=== PATIENT | male | born 1950 | race Caucasian/White ===

== ENCOUNTER 2019-07-16 19:36 | Emergency (ER) | payer BC ==
[2019-07-16] MEDS ORDERED: Bacitracin Oint 1 GM U/D Packet TOP ONE (19:51)
[2019-07-16 20:04] VITALS: BP 148/81; PULSE 57
[2019-07-16] MEDS ORDERED: Triamcinolone Acetonide 40 MG/ML 1 ML MDV INJECT ONE (20:14)
--- NOTE | 2019-07-16 20:43 | EDM.PDOC ---
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: Dressing(s) - Related Data Allergies Allergy/AdvReac Type Severity Reaction Status Date / Time No Known Allergies Allergy Verified 07/16/19 19:52 Home Meds: Home Meds Aspirin 325 mg PO DAILY 03/12/14 [History] Lactobacillus Acidophilus [Probiotic] 1 each PO DAILY 03/12/14 [History] Losartan [Cozaar] 100 mg PO DAILY 03/12/14 [History] Simvastatin [Zocor] 80 mg PO BEDTIME 03/12/14 [History] amLODIPine [Norvasc] 10 mg PO DAILY 03/12/14 [History] hydroCHLOROthiazide [Hydrochlorothiazide] 12.5 mg PO DAILY 03/12/14 [History] Zolpidem [Ambien] 10 mg PO BEDTIME PRN #0 03/17/14 [Rx] oxyCODONE 5 mg PO Q4HR PRN #0 03/17/14 [Rx] Past Medical History Cardiovascular History: Reports: High Cholesterol, Hypertension, Other (See Below) Other Cardiovascular History: rhumatic fever Respiratory History: Reports: Sleep Apnea Gastrointestinal History: Reports: Diverticulosis, GERD Neurological History: Reports: Other (See Below) Other Neuro History: lumbar spine; neck surgery Psychiatric History: Reports: Anxiety Oncologic (Cancer) History: Reports: Basal Cell Carcinoma - Infectious Disease History Infectious Disease History: Reports: Chicken Pox, Rheumatic Fever - Past Surgical History HEENT Surgical History: Reports: LASIK, Other (See Below) GI Surgical History: Reports: Colon, Hernia Repair/Other, Other (See Below) Neurological Surgical History: Reports: Lumbar Spine Social & Family History - Tobacco Use Smoking Status *Q: Never Smoker ED ROS GENERAL - Review of Systems Review Of Systems: See Below Constitutional: Reports: No Symptoms Musculoskeletal: Reports: Joint Pain (Right thumb) Skin: Reports: Wound ED EXAM, SKIN/RASH Exam: See Below Text/Narrative:: Examination of the left hand he does have a 2 cm laceration across the middle phalangeal on the dorsal surface left digit #4, full range of motion of all digits radial pulses +2 examination the right hand he does have a catching joint at the MCP digit #1 consistent with trigger finger Exam Limited By: No Limitations General Appearance: Alert, WD/WN, No Apparent Distress ED SKIN PROCEDURES - Laceration/Wound Repair Left Digit - 3rd (Middle) Appearance: Subcutaneous, Linear Distal NVT: Neuro & Vascular Intact, No Tendon Injury Anesthetic Type: Digital Local Anesthesia - Lidocaine (Xylocaine): 1% Plain Local Anesthetic Volume: 2cc Skin Prep: Chlorhexidine (Hibiciens), Saline Saline Irrigation (cc's): 30 Exploration/Debridement/Repair: Wound Explored, In a Bloodless Field, Explored to Base Suture Size: 4-0 # of Sutures: 5 Suture Type: Prolene, Interrupted Sterile Dressing Applied: Nurse Tetanus Status Addressed: Yes (2019) - Additional/Other Procedure(s) Other (Free Text) Procedure(s): Preoperative diagnosis trigger finger digit #1 right hand Postoperative diagnosis same Surgeon Abdullahi OfficerMD Verbal consent was obtained prior to procedure risks and benefits were discussed patient is in agreement and wishes to proceed. Anesthesia ethylene chloride spray Estimated blood loss none Specimens none Summary procedure: Timeout was performed prior to initiation procedure identified correct site, correct patient and correct procedure. After palpating the most tender points on the palmar surface of the digit #1 this also appreciated the largest clinic the area was cleaned with Hibiclens followed by ethylene chloride spray for local anesthesia combination of 1 mL of Kenalog 40 mg for mill and 1/2 mL of 1% lidocaine was injected into the area needle withdrawn Complications none apparent Course - Vital Signs Last Recorded V/S: Last Vital Signs Temp 97.6 F 07/16/19 20:08 Pulse 57 L 07/16/19 20:08 Resp 16 07/16/19 20:08 BP 148/81 H 07/16/19 20:08 Pulse Ox 98 07/16/19 20:08 - Orders/Labs/Meds Meds: Medications Discontinued Medications Generic Name Dose Route Start Last Admin Trade Name Freq PRN Reason Stop Dose Admin Bacitracin 1 dose 07/16/19 19:51 07/16/19 20:01 Bacitracin Oint 1 Gm TOP 07/16/19 19:52 1 dose ONETIME ONE Administration Lidocaine HCl 5 ml 07/16/19 19:51 07/16/19 20:01 Xylocaine-Mpf 1% INJECT 07/16/19 19:52 5 ml ONETIME ONE Administration Triamcinolone Acetonide 40 mg 07/16/19 20:14 07/16/19 20:27 Kenalog-40 INJECT 07/16/19 20:15 40 mg ASDIRECTED ONE Administration Departure - Departure Time of Disposition: 20:43 Disposition: Home, Self-Care 01 Condition: Good Clinical Impression: Trigger finger of right thumb Laceration of left middle finger Qualifiers: Encounter type: initial encounter Damage to nail status: without damage Foreign body presence: without foreign body Qualified Code(s): S61.213A - Laceration without foreign body of left middle finger without damage to nail, initial encounter - Discharge Information Referrals: Nate Tyler MD [Primary Care Provider] - Additional Instructions: Suture removal in 10 days, follow wound care instruction sheet return to emergency department or follow-up with primary care - Assessment/Plan Plan: Assessment Acuity = acute Site and laterality = laceration digit #4 left hand, trigger finger digit #1 right hand Etiology = secondary to trauma, unknown trigger finger etiology Manifestations = none Location of injury = Home Lab values = none Plan Follow wound care instruction sheet, suture removal in 10 days This note was dictated using Swype recognition software please call with any questions on syntax or grammar.
== END 2019-07-16 20:54 | disposition home or self-care (01) ==
LOC: JP.ED 19:36
DX: S61.213A Laceration without foreign body of left middle finger without damage to nail, initial encounter (principal); M65.311 Trigger thumb, right thumb; I10 Essential (primary) hypertension; E87.5 Hyperkalemia; F41.9 Anxiety disorder, unspecified; Z79.82 Long term (current) use of aspirin; Z79.899 Other long term (current) drug therapy; W22.8XXA Striking against or struck by other objects, initial encounter
CPT/HCPCS: 12001; 20552; 99282; J2001; J3301

== ENCOUNTER 2021-03-01 05:51 | Day surgery (SDC) | payer BC ==
[~2021-03-01 05:51] MED LIST: Nozin Nasal Sanitizer NASBOTH ONE
[2021-03-01] MEDS ORDERED: Lactated Ringers 1,000 ML IV SCH (06:15)
[2021-03-01] MEDS ORDERED: Bupivacaine 0.5% 30 ML SDV ONE ×2 (06:43→07:23)
[2021-03-01] MEDS ORDERED: ceFAZolin 1 GM in Premix Bag 1 BAG IV ONE (07:15)
[2021-03-01] MEDS ORDERED: Rocuronium 50 MG/5 ML Vial ONE (07:16)
[2021-03-01] MEDS ORDERED: Neostigmine Methylsulfate 1 MG/ML 5 ML Syringe ONE (07:16)
[2021-03-01] MEDS ORDERED: Ondansetron 4 MG/2 ML SDV ONE (07:16)
[2021-03-01] MEDS ORDERED: Propofol 200 MG/20 ML SDV ONE (07:16)
[2021-03-01] MEDS ORDERED: Dexamethasone 4 MG/ML SDV ONE (07:16)
[2021-03-01] MEDS ORDERED: Midazolam 1 MG/ML 2 ML SDV ONE (07:16)
[2021-03-01] MEDS ORDERED: Glycopyrrolate 0.2 MG/ML 5 ML MDV ONE (07:16)
[2021-03-01] MEDS ORDERED: fentaNYL 250 MCG/5 ML SDV ONE (07:16)
[2021-03-01] MEDS ORDERED: Succinylcholine 200 MG/10 ML MDV ONE (08:00)
[2021-03-01] MEDS ORDERED: Lactated Ringers 1,000 ML ONE (09:34)
[2021-03-01] MEDS ORDERED: Morphine 2 MG/ML SYRINGE IVPUSH ONE (11:12)
[2021-03-01] MEDS ORDERED: Acetaminophen/oxyCODONE 325-5 MG Tab PO PRN (11:40)
[2021-03-01 12:50] VITALS: BP 105/68; PULSE 84
--- NOTE | 2021-03-01 13:30 | PCM.EKG ---
#1 Interpretation EKG Date: 03/01/21 Time: 07:09 Rhythm: NSR Rate (Beats/Min): 60 [place]: Normal P-Wave: Present QRS: Normal ST-T: Normal QT: Normal TX/PQ Interval: 1st degree AV block Comparison: No Change
--- NOTE | 2021-03-13 16:17 | OR ---
DATE OF PROCEDURE: 03/01/2021 SURGEON: Alvaro Sheriff MD PREOPERATIVE DIAGNOSES: 1. Left rotator cuff tear. 2. Impingement, left shoulder. POSTOPERATIVE DIAGNOSES: 1. Left rotator cuff tear. 2. Impingement, left shoulder. PROCEDURE PERFORMED: Arthroscopy of left shoulder with subacromial decompression and arthroscopic rotator cuff repair. Risks, benefits, and potential complications of the procedure were discussed. INDICATIONS: The patient has had progressive pain in the left shoulder for the past several months. He has failed conservative treatment, and MRI is consistent with a full-thickness tear of the rotator cuff. DESCRIPTION OF PROCEDURE: After adequate anesthesia was obtained, the patient was placed in the lateral decubitus position and secured with a lai bag positioner. The left shoulder and arm were prepped and draped in a sterile fashion and 10 pounds of traction was placed through the traction unit. A standard posterior portal was established, and the glenohumeral joint was inspected. This revealed some minimal degenerative change in the glenohumeral joint. Biceps tendon was intact. Subscapularis was intact. The undersurface of the rotator cuff showed a combination of partial and full-thickness tears. The scope was removed from the joint and placed in the subacromial space. Moderate inflamed bursa was present. This was cleared for visualization using combination of a shaver and radiofrequency ablation. Impingement was noted of the anterolateral acromion against the cuff. Soft tissues were cleared from the anterolateral edge, and a large hook was present. This was removed with a bur, bevelling the acromion posteriorly and medially. Further evaluation of the rotator cuff revealed a laminated tear with a flap on the superior surface and severe partial-thickness tearing of the deeper fibers. Working through the lateral portal, the partial-thickness tear was debrided. A mattress stitch was placed through the edge of the tendon and up through the laminated portion of the tear, accomplishing a repair of the laminated flap to the underlying tendon. Footprint of the cuff was debrided and lightly decorticated. Two double-loaded Mitek Healix anchors were placed. Sutures were brought up through the tendon including the laminated portion. These were tied down in a mattress fashion. A set of sutures from the anterior anchor and the posterior anchor were selected, placed through a Mitek knotless anchor, and secured into the tuberosity laterally, creating a suture bridge double-row fixation. The arm was taken through internal and external rotation. Cuff repair showed good fixation. Shoulder was drained. The scope was removed. Port sites were closed in a standard fashion, and a sterile dressing was applied. The patient tolerated the procedure well. There were no complications. He was taken from the operating room in stable condition. Alvaro Sheriff MD /[id number] MTDD
== END 2021-03-01 13:32 | disposition home or self-care (01) ==
LOC: JP.SDS 05:51
PROVIDERS: ATTEND Specialist
DX: M75.122 Complete rotator cuff tear or rupture of left shoulder, not specified as traumatic (principal); M25.812 Other specified joint disorders, left shoulder; I10 Essential (primary) hypertension; G89.4 Chronic pain syndrome; K21.9 Gastro-esophageal reflux disease without esophagitis; F17.220 Nicotine dependence, chewing tobacco, uncomplicated
CPT/HCPCS: 29826; 29827; 36415; 80053; 85027; 93005; A9270; C1713; J0330; J0690; J1100; J2270; J2405; J2704; J2710; J3010; J3490; J7120; J2250

== ENCOUNTER 2021-04-17 08:44 | Day surgery (SDC) | payer BC ==
[2021-04-17] MEDS ORDERED: Nozin Nasal Sanitizer NASBOTH ONE (09:15)
[2021-04-17] MEDS ORDERED: Lactated Ringers 1,000 ML IV SCH (09:45)
[2021-04-17] MEDS ORDERED: ceFAZolin 1 GM in Premix Bag 1 BAG IV ONE (10:00)
[2021-04-17] MEDS ORDERED: fentaNYL 100 MCG/2 ML SDV ONE ×3 (10:14→15:17)
[2021-04-17] MEDS ORDERED: Midazolam 1 MG/ML 2 ML SDV ONE (10:14)
[2021-04-17] MEDS ORDERED: Propofol 200 MG/20 ML SDV ONE ×4 (10:14→14:37)
[2021-04-17] MEDS ORDERED: Bupivacaine 0.5% 30 ML SDV ONE (10:16)
[2021-04-17] MEDS ORDERED: Lidocaine 1% 2 ML ONE (13:09)
[2021-04-17] MEDS ORDERED: Lactated Ringers 1,000 ML ONE (13:47)
[2021-04-17 17:14] VITALS: BP 129/71; PULSE 82
--- NOTE | 2021-04-19 18:02 | OR ---
DATE OF PROCEDURE: 04/17/2021 SURGEON: Alvaro Sheriff MD PREOPERATIVE DIAGNOSIS: Recurrent left rotator cuff tear, traumatic. POSTOPERATIVE DIAGNOSIS: Large recurrent rotator cuff tear, left shoulder, traumatic. PROCEDURE: Arthroscopy, left shoulder, with open rotator cuff repair and augmentation with ArthroFLEX dermal graft. BILINGUAL MEDICAL ASSISTANT: GERMANIA López. ANESTHESIA: Interscalene block with sedation. INDICATIONS: Dinesh is a 71-year-old gentleman with a history of left rotator cuff repair done on 03/01/2021. Approximately a month following the repair, he unfortunately fell injuring the left shoulder and a followup MRI reveals a large recurrent tear. He is, therefore, returned to the operating room for attempted arthroscopic repair, possible open repair. The risks, benefits, potential complications were discussed. senior court office assistant services were utilized by physician chef assistant for exposure, retraction, arm positioning, and suture management. DESCRIPTION OF PROCEDURE: After adequate anesthesia was obtained, patient was placed in lateral decubitus position and secured with the lai bag positioner. The left shoulder and arm were prepped and draped in a sterile fashion and 10 pounds of traction was placed on the shoulder traction unit. A standard posterior portal was established and the glenohumeral joint was inspected. This revealed no new damage to the articular surfaces or the glenoid labrum. He was noted to have some chondromalacia of the humeral head and glenoid as well as some minor degenerative labral changes. Biceps tendon was intact. Subscapularis was intact. The rotator cuff revealed a large retracted tear with a ragged edge. The scope was moved to the subacromial space. This confirmed the large tear. Sutures were still in place in the tuberosity and the tendon had pulled through the sutures in multiple places resulting in tattered, ragged edge of the tendon. Sutures were debrided and removed with a combination of shaver and graspers. The edge of the tendon was debrided and a grasper was placed attempting to mobilize the tendon back out into position. This was very difficult to do with a significant gap still present. A decision was made to convert to an open repair and probable augmentation with the graft. The scope was removed and the lateral incision was extended longitudinally, carried through the subcutaneous tissues. Deltoid was split in line with its fibers and a self- retaining retractor was placed. A rongeur was used to decorticate the superior surface of the tuberosity. A Olla elevator was used to free up any adhesions of the cuff to the overlying tissues and beneath the cuff to the glenoid. This allowed some mobilization. Orthocord suture was placed into the anterior aspect of the tear in a locking fashion and used for traction. A similar suture was placed in the posterior portion of the tear. With traction placed on these, Orthocord suture was used to repair the tendon in a side-to- side fashion converging the margins. Suture anchor was then placed just off the articular surface slightly anterior. All 4 limbs of the sutures were then brought up through the tendon. A second suture anchor was placed more posterior position and again all 4 limbs were brought up through the tendon. Holding some traction on the tendon, the sutures from the suture anchors were then tied down, pulling the edge of the tendon onto the tuberosity. Due to the somewhat macerated condition of the tendon, tension on the repair, and the size of the tear, a decision was made to proceed with the dermal allograft augmentation. The locking sutures that had been placed in the edge of the tendon and used for traction were secured into the tuberosity using a Mitek knotless anchor. A template was cut to fit over the repair and ArthroFLEX dermal graft was then cut to fit the template. An 0 Vicryl suture was placed in the edge of the graft, at the most medial position and the center of the graft and then through the rotator cuff medial to the repair and used to pull the graft down into position. One set of each of the sutures through the tendon were then brought up through the graft. These were tied down securing the graft onto the cuff. An 0 Vicryl suture was then placed around the periphery of the graft, securing it anterior, medial, and posterior. Suture anchor was placed in the lateral portion of the tuberosity and sutures were placed through the graft securing it down laterally. One set from the posterior sutures and one set from the anterior suture pairs were then placed through a Mitek knotless anchor and secured the edge of the tuberosity anteriorly. A second set of sutures were placed through the knotless anchor and secured posteriorly creating a crisscross suture bridge over the graft. All sutures were cut. Arm was taken through internal and external rotation and the graft was confirmed to be secured in position. Shoulder was irrigated. Deltoid was repaired in a [id number] fashion with 0 Vicryl using interrupted sutures. Skin was closed with 2-0 Vicryl and a running 3-0 Monocryl. The posterior port site was closed with 3-0 Monocryl. Steri-Strips were applied. Sterile dressing was then placed. The patient tolerated the procedure very well. There were no complications, taken from the operating room in stable condition. Alvaro Sheriff MD /[id number] MTDD
== END 2021-04-17 17:14 | disposition home or self-care (01) ==
LOC: JP.SDS 08:44
PROVIDERS: ATTEND Specialist
DX: S46.012A Strain of muscle(s) and tendon(s) of the rotator cuff of left shoulder, initial encounter (principal); M94.212 Chondromalacia, left shoulder; I10 Essential (primary) hypertension; E78.00 Pure hypercholesterolemia, unspecified; Z53.31 Laparoscopic surgical procedure converted to open procedure; W19.XXXA Unspecified fall, initial encounter
CPT/HCPCS: 23412; 36415; 80053; 85027; A9270; C1713; J0690; J2250; J2704; J3010; J3490; J7120

== ENCOUNTER 2022-02-25 17:12 | Emergency (ER) | payer MEDICARE, BC ==
[2022-02-25 17:48] VITALS: BP 141/68; PULSE 82
[2022-02-25] MEDS ORDERED: Ketorolac 30 MG/ML SDV IM ONE (18:21)
[2022-02-25] MEDS ORDERED: Methocarbamol 500 MG Tab PO STA (18:40)
[2022-02-25] MEDS ORDERED: Methocarbamol 500 MG Tab PO SCH (22:00)
== END 2022-02-25 20:45 | disposition home or self-care (01) ==
LOC: JP.ED 17:12
DX: M47.812 Spondylosis without myelopathy or radiculopathy, cervical region (principal); M48.02 Spinal stenosis, cervical region; M62.838 Other muscle spasm; K21.9 Gastro-esophageal reflux disease without esophagitis; E78.00 Pure hypercholesterolemia, unspecified; I10 Essential (primary) hypertension; Z79.899 Other long term (current) drug therapy; Z79.82 Long term (current) use of aspirin; Z98.1 Arthrodesis status
CPT/HCPCS: 72125; 96372; 99283; 99284-25; A9270-GY; J1885